=== PATIENT | female | born 1965 | race Caucasian/White ===

== ENCOUNTER 2020-06-10 14:09 | Outpatient (REF) | payer BC, SELFPAY ==
--- NOTE | 2020-06-10 14:23 | XR_ITS ---
EXAMINATION: XR SACRUM AND COCCYX CLINICAL INFORMATION: Pain on exam posterior coccygeal COMPARISON: None TECHNIQUE: AP view of the sacrum. The coccyx. Lateral view of the sacrum and coccyx FINDINGS: Sacral ala are intact. There are right greater than left degenerative changes of the sacroiliac joints. No displaced coccygeal fracture on the lateral view. Lower lumbar facet arthropathy. XR/XR sacrum coccyx min 2V IMPRESSION: Degenerative changes but no acute osseous abnormality.
== END 2020-06-10 14:10 | disposition home or self-care (01) ==
LOC: HO.XRAY 14:09
PROVIDERS: PCP Naturopath; Visit Provider Naturopath
DX: S39.92XD Unspecified injury of lower back, subsequent encounter (principal); L05.91 Pilonidal cyst without abscess; M53.3 Sacrococcygeal disorders, not elsewhere classified
CPT/HCPCS: 72220

== ENCOUNTER 2020-07-08 08:28 | Outpatient (REF) | payer BC, SELFPAY ==
--- NOTE | ~2020-07-08 | MM_ITS ---
EXAMINATION: BONE DENSITOMETRY CLINICAL INDICATION: Osteoporosis. COMPARISON: This is the patient's baseline examination. TECHNIQUE: Using a [employer] DXA System (software version: 13.1) manufactured by [employer], dual-energy x-ray absorptiometry was performed of the lumbar spine and left hip. The images are of good technical quality. Summary results are attached. FINDINGS: AP SPINE L1-L4: BMD 1.154 g/cm2, Z-score 1.0, T-score -0.2, normal. LEFT FEMUR, NECK: BMD 1.115 g/cm2, Z-score 1.9, T-score 0.6, normal. LEFT FEMUR, TOTAL: BMD 1.279 g/cm2, Z-score 3.1, T-score 2.2, normal. IDENTIFIED RISK FACTORS: Menopause. HISTORY OF FRACTURE: None listed. MEDICATIONS: Vitamin D. MM/XR DEXA axial skeleton IMPRESSION: 1. DIAGNOSIS: Normal bone density based on the lowest T-score value of -0.2 in the lumbar spine applying World Health Organization criteria. 2. 10-YEAR FRACTURE RISK PREDICTION, FRAX: According to the guidelines, FRAX calculation should only be performed on patients in the osteopenia bone density category. Therefore, FRAX was not performed on this patient. 3. Treatment Recommendations: NOF guidelines recommend consideration for treatment in postmenopausal women and men age 50 and older presenting with the following: -A hip or vertebral (clinical or morphometric) fracture. -T-score less than or equal to -2.5 at the femoral neck or spine after appropriate evaluation to exclude secondary causes. -Low bone mass at the hip or spine and a 10-year fracture probability by FRAX of greater than or equal to 3% for hip fracture or greater than or equal to 20% for major osteoporotic fracture based on the [place] adapted WHO algorithm. 4. Other Recommendations: All treatment decisions require clinical judgment and consideration of individual patient factors, including patient preferences, comorbidities, previous drug use, risk factors not captured in the FRAX model (e.g. frailty, falls, vitamin D deficiency, increased bone turnover, interval significant decline in bone density) and possible under or overestimation of fracture risk by FRAX. FUTURE SCAN RECOMMENDATION: People with diagnosed cases of osteoporosis or at high risk for fracture should have regular bone mineral density tests. For patients eligible for Medicare, routine testing is allowed once every 2 years. The testing frequency can be increased to one year for patients who have rapidly progressing disease, those who are receiving or discontinuing medical therapy to restore bone mass, or have additional risk factors.
== END 2020-07-08 08:29 | disposition home or self-care (01) ==
LOC: HO.MAMMO 08:28
PROVIDERS: PCP Naturopath; Visit Provider Naturopath
DX: Z13.820 Encounter for screening for osteoporosis (principal); Z78.0 Asymptomatic menopausal state; Z79.899 Other long term (current) drug therapy
CPT/HCPCS: 77080